=== PATIENT | female | born 1985 | race Caucasian/White ===

== ENCOUNTER 2020-04-08 00:03 | Emergency (ER) | payer OTHER ==
[2020-04-08 00:36] LABS: BILIRUBIN,URINE NEGATIVE (NEGATIVE); GLUCOSE, URINE (UA) NEGATIVE (NEGATIVE); KETONES,URINE (UA) NEGATIVE (NEGATIVE); LEUKOCYTE ESTERASE, URINE NEGATIVE (NEGATIVE); NITRITE,URINE NEGATIVE (NEGATIVE); OCCULT BLOOD,URINE LARGE (NEGATIVE); PH,URINE 7.5 PH (5.0-7.5); PROTEIN,URINE NEGATIVE (NEGATIVE); UROBILINOGEN,URINE 0.2 (NORMAL) E.U./dL (NORMAL)
[2020-04-08 00:42] LABS: BACTERIA,URINE None Seen /HPF (None Seen); CLARITY,URINE CLEAR (CLEAR); RBC,URINE TNTC /HPF (0-5); SQUAMOUS EPITHELIAL CELL,UR FEW Squamous (<= Few)
--- NOTE | 2020-04-08 02:41 | ED Physician Documentation ---
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 She states she began developing the bleeding 2 days ago the bleeding has not slowed down and is now increased as well as increased cramping and she has come to the emergency department seeking further assistance. She has an ultrasound scheduled for tomorrow. She is seeing a restaurant hospitality manager and she does have a doctor in [place]. She has had an ultrasound showing an intrauterine at 6 weeks. She has not been ill recently but she feels that she has overdone it with moving a lot of heavy boxes and she felt that she was not paying attention to the fact that she was as previously in her pregnancies she has been able to ride her horse until the day she delivered Review of Systems Constitutional: denies: Fever, Chills Ears: denies: Ear pain Nose: denies: Congestion Throat: denies: Sore throat Respiratory: denies: Cough GI: reports: Abdominal Pain. denies: Vomiting : denies: Dysuria, Frequency Skin: denies: Rash Musculoskeletal: denies: Neck pain, Back pain, Extremity pain Neurologic: denies: Generalized weakness, Focal weakness, Numbness PD PAST MEDICAL HISTORY - Past Medical History Past Medical History: No - Past Surgical History Past Surgical History: No - Present Medications Home Medications: Ambulatory Orders Medication Instructions Recorded Confirmed No Known Home Medications 04/08/20 04/08/20 - Allergies Allergies/Adverse Reactions: Allergies Allergy/AdvReac Type Severity Reaction Status Date / Time No Known Drug Allergies Allergy Verified 04/08/20 00:13 - Social History Does the pt smoke?: No Smoking Status: Never smoker Does the pt drink ETOH?: No Does the pt have substance abuse?: No - Immunizations Immunizations are current?: Yes PD ED PE NORMAL - Vitals Vital signs reviewed: Yes (Hypertensive) - General General: Alert and oriented X 3, No acute distress, Well developed/nourished - HEENT HEENT: Atraumatic, PERRL, EOMI - Neck Neck: Supple, no meningeal sign, No bony TTP - Cardiac Cardiac: RRR, No murmur - Respiratory Respiratory: No respiratory distress, Clear bilaterally - Abdomen Abdomen: Normal bowel sounds, Soft, Non distended, No organomegaly, Other (There is some suprapubic tenderness to deep palpation.) - Back Back: No CVA TTP, No spinal TTP - Derm Derm: Normal color, Warm and dry, No rash - Extremities Extremities: No deformity, No edema - Neuro Neuro: Alert and oriented X 3, 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, No motor deficit, No sensory deficit, Normal speech Eye Opening: Spontaneous Motor: Obeys Commands Verbal: Oriented GCS Score: 15 - Psych Psych: Normal mood, Normal affect Results - Vitals Vitals: Vital Signs - 24 hr 04/08/20 04/08/20 04/08/20 00:07 02:45 02:55 Temperature 36.7 C 36.6 C 37.2 C Heart Rate 81 78 77 Respiratory 18 18 18 Rate Blood Pressure 112/64 115/51 L 122/80 O2 Saturation 99 100 95 Oxygen O2 Source Room air - Labs Labs: Laboratory Tests 04/08/20 00:16 Urine Color YELLOW Urine Clarity CLEAR Urine pH 7.5 Ur Specific [place] 1.010 Urine Protein NEGATIVE Urine Glucose (UA) NEGATIVE Urine Ketones NEGATIVE Urine Occult Blood LARGE H Urine Nitrite NEGATIVE Urine Bilirubin NEGATIVE Urine Urobilinogen 0.2 (NORMAL) Ur Leukocyte Esterase NEGATIVE Urine RBC TNTC H Urine WBC 0-3 Ur Squamous Epith Cells FEW Squamous Urine Bacteria None Seen Ur Microscopic Review INDICATED Urine Culture Comments NOT INDICATED - Rads (name of study) OB u/s first trimester Radiology: Prelim report reviewed (Impression: 1. Findings suggesting in progress. pole without heart rate, a gestational sac appears to be in the vagina. There are some nonvascular products of conception likely within the lower uterine segment and cervix.), EMP read indepedently, See rad report Procedures - Bedside sono Bedside sono by EMP: With use of bedside ultrasound there is appearance of a gestational sac but I am unable to see any parts. PD MEDICAL DECISION MAKING - ED course Complexity details: reviewed results, re-evaluated patient, considered differential, d/w patient ED course: 34-year-old female with acute bleeding and cramping has developed worsening of her symptoms and today the appearance on ultrasound is an incomplete miscarriage. There are no viable parts. Departure - Departure Disposition: 01 Home, Self Care Clinical Impression: Incomplete miscarriage Condition: Stable Instructions: ED Miscarriage Incom Follow-Up: Kenau Villeda MD [Primary Care Provider] - Discharge Date/Time: 04/08/20 03:15
[2020-04-08] MEDS ORDERED: HYDROcod/ACET 5/325 Prepack 4 PO STA (02:52)
[2020-04-08 02:55] VITALS: BP 122/80
--- NOTE | 2020-04-08 08:48 | Ultrasound Report ---
PROCEDURE: OB First Trimester INDICATIONS: bleeding cramping 7wks OUTSIDE/PRIOR DATING DATA: Last menstrual period (LMP): 1. LMP-based estimated date of delivery (LEON): Unknown. First dating scan (date and location): 04/08/2020. Estimated date of delivery (LEON) from first dating scan: Not applicable. TECHNIQUE: Real-time scanning was performed of the fetus and maternal pelvic organs, with image documentation. COMPARISON: None FINDINGS: Embryo: Within the vagina, in a regular hypoechoic structure is present suggestive of gestational sa c measuring 2.6 cm corresponding to 7 weeks 4 days. There are areas of internal echogenicity which co uld represent a pole, measuring 1.6 cm corresponding to 8 weeks 0 days. No heart tones ar e identified. Measurement variability in dating: +/- 4 weeks by LMP, +/- 7 days by mean sac diameter (use before 6 weeks gestation if crown-rump length not able to be measured), +/- 5 days by crown-rump length (6-12 weeks gestation). Maternal organs: Ovaries Bilateral ovarian follicles are noted.. Limited images through the kidneys demonstrate no hydronephrosis. IMPRESSION: 1. Appearance of gestational sac with internal debris versus pole is noted within the vagina. N o heart tones are identified. Overall appearance is suggestive of in progress. Product s of conception are likely present within the lower uterine segment and cervix. Follow-up ultrasound is recommended as clinically indicated to document resolution. The above findings are concordant with preliminary report. Reviewed by: Keyla Samayoa MD on 04/08/2020 8:47 AM PDT Approved by: Keyla Samayoa MD on 04/08/2020 8:47 AM PDT Station ID: [id number]
== END 2020-04-08 03:15 | disposition home or self-care (01) ==
LOC: ED 00:03
DX: O03.4 Incomplete spontaneous abortion without complication (principal)
CPT/HCPCS: 76801; 76817; 81001; 81003; 87086; 99284

== ENCOUNTER 2021-11-22 01:52 | Emergency (ER) | payer OTHER ==
[2021-11-22 02:01] VITALS: BP 104/82
--- NOTE | 2021-11-22 02:14 | ED Physician Documentation ---
PD HPI LOWER EXT INJURY - Stated complaint Stated Complaint: L ANKLE INJ - Chief complaint Chief Complaint: Trauma Ext - History obtained from History obtained from: Patient - Additional information Additional information: Patient is a 36-year-old female with no significant past medical history presenting for evaluation of left ankle pain after injury that she sustained on Saturday afternoon. Patient was working in her yard carrying some objects when she rolled her ankle. She heard a Crack and had pain. She has been able to ambulate but it is painful. Pain is sharp. It is worse with movement. She has not taken anything for the pain. She denies numbness. She denies pain elsewhere. She denies previous injury To the extremity. Review of Systems Constitutional: denies: Fever Nose: denies: Congestion Cardiac: denies: Chest pain / pressure Respiratory: denies: Dyspnea GI: denies: Abdominal Pain Musculoskeletal: reports: Extremity pain Neurologic: denies: Head injury PD PAST MEDICAL HISTORY - Past Medical History Past Medical History: No - Past Surgical History Past Surgical History: No - Present Medications Home Medications: Ambulatory Orders Medication Instructions Recorded Confirmed No Known Home Medications 04/08/20 11/22/21 - Allergies Allergies/Adverse Reactions: Allergies Allergy/AdvReac Type Severity Reaction Status Date / Time No Known Drug Allergies Allergy Verified 11/22/21 02:00 - Social History Does the pt smoke?: No Smoking Status: Never smoker Does the pt drink ETOH?: No Does the pt have substance abuse?: No - Immunizations Immunizations are current?: Yes - POLST Patient has POLST: No PD ED PE NORMAL - General General: Alert and oriented X 3, No acute distress, Well developed/nourished - HEENT HEENT: Atraumatic - Cardiac Cardiac: Strong equal pulses - Respiratory Respiratory: No respiratory distress - Derm Derm: Normal color, No rash - Extremities Extremities: Other (Tenderness to left lateral malleoli, mild swelling, no tenderness to the foot, pulses intact in the foot, compartments of extremity are soft, full range of motion at the knee) - Neuro Neuro: No motor deficit, No sensory deficit - Psych Psych: Normal mood Results - Vitals Vitals: Vital Signs - 24 hr 11/22/21 11/22/21 11/22/21 01:55 02:05 02:34 Temperature 36.6 C Heart Rate 62 Respiratory 16 17 15 Rate Blood Pressure 104/82 H O2 Saturation 99 11/22/21 02:58 Temperature Heart Rate Respiratory 16 Rate Blood Pressure O2 Saturation Oxygen O2 Source Room air PD MEDICAL DECISION MAKING - ED course ED course: Patient evaluated for left ankle injury. Neurovascularly intact. No signs of infection. Compartments of extremity are soft. X-rays negative for fracture dislocation. Patient given Aircast and crutches and advised on care for sprain. She is aware of return precautions and need for follow-up. Departure - Departure Disposition: 01 Home, Self Care Clinical Impression: Left ankle injury Qualifiers: Encounter type: initial encounter Qualified Code(s): S99.912A - Unspecified injury of left ankle, initial encounter Condition: Stable Instructions: ED Sprain Ankle W X Ray Comments: Estera - Your evaluated for an injury to your left ankle. An x-ray does not show any obvious fractures. Radiologist will also formally read the x-ray in the morning. We have applied an Aircast and given you crutches which may help with pain over the next several days. Please use Motrin or Tylenol for pain, use the Aircast and crutches to help stay off the ankle while it is hurting to walk on it, elevate and use ice. If you have worsening pain, or pain elsewhere please return to the emergency department. Discharge Date/Time: 11/22/21 03:05
--- NOTE | 2021-11-22 08:32 | XRAY Report ---
PROCEDURE: Ankle 3 View LT INDICATIONS: Tripped fell injured L ankle. TECHNIQUE: 3 views of the ankle were acquired. COMPARISON: None FINDINGS: Bones: No fractures or dislocations. Ankle mortise is normally aligned. No suspicious bony lesions . Soft tissues: No tibiotalar joint effusion. Achilles tendon appears normal. IMPRESSION: No fracture. No osseous lesion. If symptoms and/or clinical concern for pathology persists, further a ssessment with repeat plain film radiographs (7-10 days) or advanced imaging (CT, MR, bone scan) shou ld be considered. Reviewed by: Vita Hernandez MD, PhD on 11/22/2021 8:31 AM PDT Approved by: Vita Hernandez MD, PhD on 11/22/2021 8:31 AM PDT Station ID: [id number]
== END 2021-11-22 03:05 | disposition home or self-care (01) ==
LOC: ED 01:52
DX: S99.912A Unspecified injury of left ankle, initial encounter (principal); X50.1XXA Overexertion from prolonged static or awkward postures, initial encounter; Y92.007 Garden or yard of unspecified non-institutional (private) residence as the place of occurrence of the external cause
CPT/HCPCS: 99282; 99283